=== PATIENT | female | born 1955 | race Caucasian/White ===

== ENCOUNTER 2025-09-22 14:03 | Emergency (ER) | payer MEDICARE, BC ==
[~2025-09-22] VITALS: Ht 160 cm; Wt 72.6 kg
--- NOTE | 2025-09-22 14:14 | ERN ---
ED Note History of Present Illness Stated Complaint: COUGH Chief Complaint: Cough Time Seen by MD: 14:08 Dictation: PATIENT IS A 70-YEAR-OLD FEMALE HERE WITH HER WITH COMPLAINTS OF A PERSISTENT COUGH WITH THE OCCASIONAL CLEAR PHLEGM FOR THE LAST 4-5 DAYS. SHE ALSO STATES SHE HAS HAD A FRONTAL HEADACHE WITH A COUGH. NO NAUSEA VOMITING SHE DID HAVE A DIARRHEA STOOL TODAY. PATIENT HAS SMELL NO FEVER SHE DENIES ANY HISTORY OF HEART DISEASE, CHF CAD OR STENTS. SHE DENIES ANY HISTORY OF PULMONARY DISEASE COPD EMPHYSEMA OR ASTHMA. Allergies: Coded Allergies: acetaminophen (Unverified Allergy, Unknown, HIVES, 09/22/25) dextromethorphan (Unverified Allergy, Unknown, HIVES, 09/22/25) doxylamine (Unverified Allergy, Unknown, HIVES, 09/22/25) pseudoephedrine (Unverified Allergy, Unknown, HIVES, 09/22/25) Past Medical History Past Medical History: Pneumonia Surgical History: Other History: Not Applicable RN Note Reviewed/Agreed w/PFSH: Yes Review of System Dictation CONSTITUTIONAL: NEGATIVE EXCEPT FOR HPI HEAD/FACE: NEGATIVE EXCEPT FOR HPI EENT: NEGATIVE EXCEPT FOR HPI RESPIRATORY: NEGATIVE EXCEPT FOR HPI PERSISTENT COUGH FOR SOB GASTROINTESTINAL/ABDOMINAL: NEGATIVE EXCEPT FOR HPI GENITOURINARY: NEGATIVE EXCEPT FOR HPI MUSCULOSKELETAL: NEGATIVE EXCEPT FOR HPI INTEGUMENTARY: NEGATIVE EXCEPT FOR HPI NEUROLOGICAL/PSYCH: NEGATIVE EXCEPT FOR HPI HEMATOLOGIC/LYMPHATIC: NEGATIVE EXCEPT FOR HPI ALL SYSTEMS NEGATIVE, EXCEPT NOTED ABOVE. 13 POINT REVIEW OF SYSTEMS ASSESSED AND ALL NEGATIVE EXCEPT FOR ABOVE. Initial Vital Sign VS Vital Signs Date Time Temp Pulse Resp B/P (MAP) Pulse Ox O2 Delivery O2 Flow Rate FiO2 09/22/25 14:05 96.6 99 20 135/88 99 Room Air 09/22/25 14:42 0 21 Physical Exam Dictation VITAL SIGNS REVIEWED GENERAL APPEARANCE: ALERT, ORIENTED X 3, NO ACUTE DISTRESS, WELL DEVELOPED, NOURISHED. YOUR OVER 10 PAIN HEAD AND FACE: NON-TRAUMATIC. EYES: PERRL, PINK CONJUNCTIVAS, EYELID NO TRAUMA, ANTERIOR CHAMBER WITH ARCUS SENILIS. EARS: PINNAS INTACT AND NO SIGNS OF TRAUMA OR ERYTHEMA EAR CANALS CLEAR AND NO DISCHARGE TM NO ERYTHEMA NOSE: NO DISCHARGE, NO BLEEDING. OROPHARYNX: MOUTH NORMAL, TONGUE PINK, PHARYNX CLEAR,NO ERYTHEMA, TONSILS NO EXUDATES, NO ABSCESSES NOTED, MUCOUS MEMBRANE MOIST NECK: SUPPLE, NON-TENDER, NO THYROMEGALY, NO MASSES, NO JVD, NO BRUITS BREAST:DEFERRED CHEST:NO TENDERNESS, NO CREPITUS, NO PARADOXICAL MOVEMENT, NO RETRACTIONS LUNGS:CLEAR, WELL-VENTILATED, SYMMETRIC, NO RALES, NO WHEEZING, NO RHONCHI, NO STRIDOR, GOOD BREATH SOUNDS BILATERALLY NO TACHYPNEA OR RETRACTIONS DIMINISHED HEART: REGULAR RATE, REGULAR RHYTHM, NO MURMUR, NO GALLOPS VASCULAR: NO PERIPHERAL EDEMA, ABDOMEN: SOFT, POSITIVE BOWEL SOUNDS, NONDISTENDED, NO GUARDING, NONTENDER, NO REBOUND, NO MASSES NO HEPATOMEGALY, NO SPLENOMEGALY, NO OWENS'S SIGN, NO HERNIAS. RECTAL: DEFERRED GENITAL: DEFERRED NEUROLOGICAL: NORMAL SPEECH, MOTOR FUNCTION INTACT, SENSORY FUNCTION INTACT MUSCULOSKELETAL: NECK NONTENDER, FULL RANGE OF MOTION, BACK NONTENDER, FULL RANGE OF MOTION, EXTREMITIES: NONTENDER, FULL RANGE OF MOTION SKIN: COLOR PINK, DRY, NO TURGOR, NO RASH, NO LACERATIONS, NO ABRASIONS, NO CONTUSIONS. LYMPHATIC: DEFERRED Results (Laboratory/Radiology) Laboratory/Radiology Laboratory Tests Test 09/22/25 14:17 09/22/25 14:26 09/22/25 15:39 09/22/25 16:10 SARS-CoV-2 Antigen (Rapid) PRESUMPTIVE NEGATIVE White Blood Count 7.8 K/uL (4.8-10.8) Red Blood Count 4.81 MIL/uL (4.00-5.50) Hemoglobin 14.7 g/dL (12.0-16.0) Hematocrit 44.6 % (36-48) Mean Corpuscular Volume 92.7 fL (79-99) Mean Corpuscular Hemoglobin 30.6 pg (27.0-33.0) Mean Corpuscular Hemoglobin Concent 33.0 g/dL (32.0-36.0) Red Cell Distribution Width 12.5 % (11.0-15.5) Platelet Count 276 K/uL (130-400) Mean Platelet Volume 10.2 fL (7.5-10.5) Immature Granulocyte % (Auto) 0.3 % (0-1) Neutrophils (%) (Auto) 44.2 % (40.0-77.0) Lymphocytes (%) (Auto) 44.5 % (21.0-51.0) Monocytes (%) (Auto) 8.5 % (3.0-13.0) Eosinophils (%) (Auto) 1.7 % (0.0-8.0) Basophils (%) (Auto) 0.8 % (0.0-5.0) Neutrophils # (Auto) 3.5 K/uL (1.8-7.7) Lymphocytes # (Auto) 3.5 K/uL (1.0-4.8) Monocytes # (Auto) 0.7 K/uL (0.1-1.0) Eosinophils # (Auto) 0.13 K/uL (0.00-0.70) Basophils # (Auto) 0.06 K/uL (0.00-0.20) Absolute Immature Granulocyte (auto 0.02 K/uL (0-1) Nucleated Red Blood Cells 0.0 % (0.0-0.19) Sodium Level 139 mmol/L (136-145) Potassium Level 4.5 mmol/L (3.5-5.1) Chloride Level 101 mmol/L (101-111) Carbon Dioxide Level 30 mmol/L (21-32) Blood Urea Nitrogen 13 mg/dL (7-18) Creatinine 0.9 mg/dL (0.5-1.0) Glomerular Filtration Rate Calc 68 mL/min (>90) Random Glucose 114 mg/dL (70-105) H Lactic Acid Level 2.6 mmol/L (0.8-2.5) H Total Calcium 10.3 mg/dL (8.5-10.1) H Troponin I High Sensitivity < 4 ng/L (4-50) L 5 ng/L (4-50) B-Type Natriuretic Peptide 8 pg/mL (0-100) Urine Color LIGHT-YELLOW (YELLOW) Urine Appearance CLEAR (CLEAR) Urine pH 6.5 (5.0-8.0) Urine Specific [place] 1.011 (1.001-1.031) Urine Protein NEGATIVE mg/dL (NEGATIVE) Urine Glucose (UA) NEGATIVE mg/dL (NEGATIVE) Urine Ketones NEGATIVE mg/dL (NEGATIVE) Urine Occult Blood NEGATIVE (NEGATIVE) Urine Nitrate NEGATIVE (NEGATIVE) Urine Bilirubin NEGATIVE mg/dL (NEGATIVE) Urine Urobilinogen 0.2 mg/dL (0.2-1.0) Urine Leukocyte Esterase 250 Valerie/uL (NEGATIVE) H Urine RBC None /HPF (0-1) Urine WBC 11-25 /HPF (0-1) H Urine Squamous Epithelial Cells RARE /HPF (0-2) Urine Bacteria None /HPF (None Seen) Test 09/22/25 17:53 Lactic Acid Level 1.8 mmol/L (0.8-2.5) ICAL INFORMATION Chest pain, shortness of breath COMPARISON None. TECHNIQUE Frontal view chest. FINDINGS Lines and tubes: None Lungs: Clear. Pleura: Unremarkable. No effusion or pneumothorax. Cardiomediastinal Silhouette: Hiatal hernia. No cardiomegaly. Bones: Normal for age. Soft Tissues: Normal. IMPRESSION No acute pulmonary findings. Hiatal hernia. /Burke Labs Reviewed?: Yes EKG Comment: 1413/EKG SINUS RHYTHM WITH BUNDLE BRANCH BLOCK/HEART RATE 96/AXIS NO ED Course ED Course Orders Procedure Category Date Status Time Covid19 (Sars Antigen LAB 09/22/25 Complete Rapid) 14:11 Cbc With Differential LAB 09/22/25 Complete 14:11 Troponin I High LAB 09/22/25 Complete Sensitivity 14:11 12 Lead Ekg Tracing- EKG 09/22/25 Logged Technical 14:11 Chest 1vw RAD 09/22/25 Resulted 14:11 Basic Metabolic Panel LAB 09/22/25 Complete 14:11 Blood Cult EVONNE 09/22/25 In Process 14:19 Lactic Acid LAB 09/22/25 Complete 14:19 Urinalysis Profile LAB 09/22/25 Complete 14:47 Albuterol 0.083% PHA 09/22/25 Complete 2.5mg/3ml (Proventil 15:00 B-Type Natriuretic LAB 09/22/25 Complete Peptide 14:47 12 Lead Ekg Tracing- EKG 09/22/25 Logged Technical 14:47 Troponin I High LAB 09/22/25 Complete Sensitivity 14:47 Methylprednisolone PHA 09/22/25 Complete Succ 125mg (Solu-Medr 15:30 0.9%Nacl 1000ml (Ns PHA 09/22/25 Complete 1000ml) 15:30 Levofloxacin 500 PHA 09/22/25 Complete Mg/D5w 100 Ml 16:00 Culture Urine EVONNE 09/22/25 In Process 15:55 Lactic Acid (Removed) LAB 09/22/25 Complete 17:43 Current Medications Medications (Trade) Dose Ordered Sig/Sharon Route PRN Reason Start Time Stop Time Status Last Admin Dose Admin Albuterol Sulfate (Proventil 0.083% 2.5mg/3ml) 2.5 mg ONCE ONCE IH 09/22/25 15:00 09/22/25 15:01 DC 09/22/25 15:03 Azithromycin 250 ml @ 250 mls/hr Q24H STAT IVPB 09/22/25 14:47 09/22/25 15:40 DC Ceftriaxone Sodium (Rocephin 2gm Inj) 2 gm ONCE ONCE IVPB 09/22/25 15:00 09/22/25 15:40 DC Levofloxacin/ Dextrose 100 ml @ 100 mls/hr ONCE ONCE IV 09/22/25 16:00 09/22/25 16:59 DC 09/22/25 15:58 Methylprednisolone Sodium Succinate (Solu-medROL 125MG) 125 mg ONCE ONCE IVP 09/22/25 15:30 09/22/25 15:31 DC 09/22/25 15:58 Sodium Chloride 1,000 ml @ 0 mls/hr ONCE ONCE IV 09/22/25 15:30 09/22/25 15:31 DC 09/22/25 15:58 Vital Signs Date Time Temp Pulse Resp B/P (MAP) Pulse Ox O2 Delivery O2 Flow Rate FiO2 09/22/25 15:04 89 18 09/22/25 14:42 98.8 97 18 156/68 98 Room Air* 0 21 09/22/25 14:05 96.6 99 20 135/88 99 Room Air 1815/repeat lactic acid 1.8. Patient has no fever hemodynamically stable Cough is improved. She will be discharged home with Levaquin albuterol/Medrol Dosepak and Tessalon Given a list of local doctors on staff to see in the next 1-2 days. HEART Score Response (Comments) Value EKG: Repolarization changes 1 Age: > 65yrs (+2) 2 Risk Factors: 1-2 risk factors (+1) 1 Initial Troponin: Normal limit (0) 0 Total 4 Medical Decision Making MDM MDM: Differential diagnosis: ACS/AMI/pneumonia/bronchitis/SARs COVID/electrolyte imbalance/dehydration Rationale: Tests considered and ordered secondary to shared decision making include: Radiology/labs/EKG Previous outside records reviewed: Old ER visits. Risk of complication and/or morbidity or mortality of patient management: None Medications-Per medication reconciliation Need for hospitalization: Patient does not meet criteria for hospitalization. None Need for emergency major/minor surgery: No There are no social concerns with this patient. Prescription drug management Levaquin/albuterol/Medrol Dosepak/Tessalon Prescriptions will include symptomatic care Patient's prior external medical records from other ER visits were reviewed by me as indicated. Prior testing and results from previous visits were reviewed. Prior tests were taken into account with medical decision making and resource utilization, independent historian/historians were used to obtain complete medical history. I independently interpreted the test that were performed, results were reviewed by me and considered findings on radiology if ordered. Medical management and examination interpretation discussions were had by me with other qualified healthcare professionals as indicated for the patient's care. DX & DISP Disposition: Discharge Departure Impression: Primary Impression: Viral URI with cough Additional Impression: Sepsis Condition: Stable Scripts Levofloxacin (Levofloxacin) 500 Mg Tablet 1 TAB PO DAILY for 7 Days, #7 TAB 0 Refills Prov: SHAGGY DE OLIVEIRA PRACTICE ARCHITECT 09/22/25 Benzonatate (Tessalon Perles) 100 Mg Cap 200 MG PO q8 for Cough, #60 CAP Prov: SHAGGY DE OLIVEIRA PRACTICE ARCHITECT 09/22/25 Methylprednisolone (Medrol) 4 Mg Tab.ds.pk 1 TAB PO AD for 6 Days, #21 TAB 0 Refills 6 on day 1 then reduce by one tablet daily until gone Prov: SHAGGY DE OLIVEIRA PRACTICE ARCHITECT 09/22/25 Albuterol Sulfate (Ventolin Hfa/Proventil Hfa/Proair Hfa) 90 Mcg Puff 2 PUFF IH Q4H for WHEEZING, #1 INHALER 0 Refills Prov: SHAGGY DE OLIVEIRA PRACTICE ARCHITECT 09/22/25 Additional Instructions: Follow-up with primary care provider in 1 to 2 days. Take medications as directed here in the emergency room. Okay to continue home medications unless otherwise discussed during your visit in the emergency room today. Return to your nearest emergency room if symptoms worsen or if there is no improvement. Call 911 if you need immediate assistance. Take Tylenol or Motrin [id number] as needed and if no contraindications are present. Increase oral hydration. A wound culture or urine culture was ordered here in the emergency room department please follow-up with primary care provider and advise them to get repeat ports from our facility. If you had any Nnamdi wrap/splints that were applied here, please do not remove them until you see your primary care or specialty. Use albuterol inhaler every4 hours while awake for the next two days. Take Medrol Dosepak and Levaquin as directed until gone. Take Tessalon as needed for cough every 8 hours Increase your water intake. Follow up with one of the doctors on the list provided you in the next 2-3 days for management Time of Disposition: 18:16 I have reviewed the case, and I agree with, Diagnosis and Plan SHAGGY DE OLIVEIRAP Sep 22, 2025 14:14
[2025-09-22 14:33] LABS: IMMATURE GRANULOCYTE ABSOLUTE 0.02 K/uL (0-1); NUCLEATED RED BLOOD CELLS 0.0 % (0.0-0.19); PLATELET COUNT (AUTO) 276 K/uL (130-400); RED BLOOD CELL COUNT(AUTO) 4.81 MIL/uL (4.00-5.50); RED CELL DISTRIBUTION WIDTH 12.5 % (11.0-15.5); WHITE BLOOD COUNT (AUTO) 7.8 K/uL (4.8-10.8)
[2025-09-22 14:46] LABS: CREATININE 0.9 mg/dL (0.5-1.0); GLOMERULAR FILTR. RATE CALC 68.0 mL/min (>90); GLUCOSE,RANDOM 114.0 mg/dL (70-105); SODIUM SERUM 139.0 mmol/L (136-145); UREA NITROGEN, BLOOD 13.0 mg/dL (7-18)
[2025-09-22] MEDS ORDERED: AZITHROMYCIN 500MG+NS 250ML 250 ML IVPB STA (14:47)
--- NOTE | 2025-09-22 15:02 | HMCIMG ---
CLINICAL INFORMATION Chest pain, shortness of breath COMPARISON None. TECHNIQUE Frontal view chest. FINDINGS Lines and tubes: None Lungs: Clear. Pleura: Unremarkable. No effusion or pneumothorax. Cardiomediastinal Silhouette: Hiatal hernia. No cardiomegaly. Bones: Normal for age. Soft Tissues: Normal. IMPRESSION No acute pulmonary findings. Hiatal hernia. /Maxie
[2025-09-22] MEDS: ALBUTEROL 0.083% 2.5 MG/3 ML INH IH ONE (15:03)
[2025-09-22 15:04] VITALS: PULSE 89; RESP 18
[2025-09-22 15:48] LABS: APPEARANCE,URINE CLEAR (CLEAR); GLUCOSE, URINE (UA) NEGATIVE (NEGATIVE); LEUKOCYTE ESTERASE ,URINE 250 Leu/uL (NEGATIVE); NITRATE,URINE NEGATIVE (NEGATIVE); OCCULT BLOOD,URINE NEGATIVE (NEGATIVE)
[2025-09-22 15:55] LABS: ADD UA MICROSCOPIC YES
[2025-09-22 15:58] LABS: SQUAMOUS EPITHELIAL CELL,UR RARE /HPF (0-2)
[2025-09-22] MEDS: 0.9%NACL 1000ML 1,000 ML IV ONE (15:58)
[2025-09-22] MEDS ORDERED: LEVO-70 PO (18:18)
[2025-09-22] MEDS ORDERED: METH4TAB3 PO (18:18)
[2025-09-22] MEDS ORDERED: BENZ-39 PO (18:18)
[2025-09-22] MEDS ORDERED: ALBUHFA IH (18:18)
[2025-09-22 18:43] VITALS: BP 145/79; PULSE 107; RESP 16; TEMP 98.4; O2SAT 96
--- NOTE | 2025-10-01 18:47 | EKG ---
[facility] Test Date: 2025-09-30 Test Time: 18:48:16 Pat Name: BRADLEY CADET Department: ED Room: Gender: F Take Off Worker: [id number] : 1955 Requested By: SHAGGY DE OLIVEIRA Order Number: [id number] Reading MD: Kapil Marie Measurements Intervals [place] Rate: 116 P: 0 WI: 0 QRS: -45 QRSD: 92 T: 6 QT: 328 QTc: 456 Interpretive Statements Sinus Rhythm with Premature Atrial Beats Probable inferior infarct, recent Anterior Infarct Anterior Q waves, possibly due to LVH No previous ECG available for comparison Electronically Signed On 10-01-2025 20:08:18 SONOGRAPHY TECHNOLOGIST by Kapil Marie Please click the below link to view image of tracing.
== END 2025-09-22 18:51 | disposition home or self-care (01) ==
LOC: EDH 14:03
DX: A41.9 Sepsis, unspecified organism (principal); J06.9 Acute upper respiratory infection, unspecified; B97.89 Other viral agents as the cause of diseases classified elsewhere; Z20.822 Contact with and (suspected) exposure to COVID-19
CPT/HCPCS: 99285; 96365; 71045; 96375; 87426; 84484 ×2; 80048; 83880; 85025; 87040 ×2; 87086; 83605 ×2; 81001; 36415; 93005; 94640; J2919; J1956; J7030; J0696; J0456